=== PATIENT | male | born 1975 | race Caucasian/White ===

== ENCOUNTER 2017-02-08 10:21 | Emergency (ER) | payer MEDICARE, OTHER ==
[~2017-02-08 10:21] MED LIST: BUPR100T6 PO; CANA300T PO; CEPH-263 PO; CLON0.5T PO; COLE625T12 PO; CYCL-331 PO; DIVA500T2 PO; FENO67CA PO; GLIP10TA13 PO; HALO5AMP2 IJ; HYDR-971 PO; INSU100I13 SQ; INSU100V5 IJ; OMEG500C PO; TEST5GEL29 TD; TRAM50TA PO; TRAZ150T49 PO; [UNRECOGNIZED DRUG - OTHER]
--- NOTE | 2017-02-08 11:04 | RAD ---
Clinical Indication: Hit head on a shelf standing up, pain Technique: Study is dated February 08, 2017. CT images of the head were obtained from the skull base to the vertex without IV contrast. There are no comparison studies available. One or more of the following individualized dose reduction techniques were utilized for this examination: 1. Automated exposure control 2. Adjustment of the mA and/or kV according to patient size 3. Use of iterative reconstruction technique Findings: The ventricles are normal in size and configuration. There is no hemorrhage, extraaxial collection, mass, or midline shift. There is no large vascular distribution acute infarct. The posterior fossa and brainstem are unremarkable. Orbits are normal. The included paranasal sinuses and mastoid air cells are clear. There is no skull fracture appreciated on bone level images. Impression: No acute intracranial findings.
--- NOTE | 2017-02-08 11:14 | PHYS DOC ---
Past History Past Medical History: Bipolar, Diabetes, Other Past Surgical History: Cholecystectomy, Tonsillectomy Smoking: Non-smoker Alcohol Use: None Drug Use: None Adult General Chief Complaint Chief Complaint: head injury HPI HPI Patient is a 42-year-old male who presents after head injury at work. The patient was at work when he bent over to pick something up, as he raised up he struck the top of his head on the corner of a metal shelf. He did not get knocked out and did not get knocked to the ground, he stumbled for a minute but was able to stand up. He had a little scrape or laceration to the top of his head. Over the next 30-40 minutes, he started feeling a little "confused", felt like when he stood up from a seated position he felt a little off balance, also felt like a ringing or of whooshing sound in his left ear. He does not particularly have a headache. He has had no nausea or vomiting. His shift ended at 10 AM so he came in to be checked out. He states he's had a few concussions in the past. He denies blood thinners. Patient did express a concern about radiation from CT scan, and we discussed risk/benefit. The patient, after this discussion, does want to have the CT scan. Review of Systems Review of Systems Constitutional: Denies fever or chills [] Eyes: Denies change in visual acuity HENT: As in history of present illness GI: Denies nausea or vomiting Musculoskeletal: Denies injury elsewhere Neurologic: Denies headache, focal weakness or sensory changes [] Allergies Allergies Allergies Coded Allergies Type Severity Reaction Last Updated Verified adhesive Allergy Intermediate RASH 03/12/15 Yes latex Allergy Unknown 03/12/15 No Physical Exam Physical Exam Constitutional: Well developed, well nourished, no acute distress, non-toxic appearance. Alert, ambulatory, mentating normally. HENT: Normocephalic, 1 cm abrasion linear over the top of the head which is hemostatic, bilateral external ears normal, bilateral EACs and TMs normal. Eyes: PERRLA, EOMI, conjunctiva normal, no discharge. [] Neck: Normal range of motion, no tenderness, supple, no stridor. [] Extremities: No tenderness, no cyanosis, no clubbing, ROM intact, no edema. [] Neurologic: Alert and oriented X 3, normal motor function, normal sensory function, no focal deficits noted. [] Current Patient Data Vital Signs Vital Signs Date Time Temp Pulse Resp B/P (MAP) Pulse Ox O2 Delivery O2 Flow Rate FiO2 02/08/17 10:25 97.8 107 18 95 Room Air EKG EKG [] Radiology/Procedures Radiology/Procedures CT scan of the head interpreted by the radiologist, no acute findings. [] Course & Med Decision Making Course & Med Decision Making Pertinent Labs and Imaging studies reviewed. (See chart for details) 42-year-old male with a minor head injury and negative CT scan, he is not on blood thinners. He lives with his who will keep an eye on him. Head injury precautions given. [] Dragon Disclaimer Dragon Disclaimer This chart was dictated in whole or in part using Voice Recognition software in a busy, high-work load, and often noisy Emergency Department environment. It may contain unintended and wholly unrecognized errors or omissions. Departure Departure: Impression: Primary Impression: Head injury, acute, without loss of consciousness Disposition: 01 HOME, SELF-CARE Condition: STABLE Referrals: KELLY GARCIA (PCP) Patient Instructions: Head Injury, Adult, [id number] Additional Instructions: Have someone stay with you for 24-48 hours. If you have severe headache, vomiting, or symptoms such as difficulty walking or speaking, return to ED right away. Ibuprofen or Tylenol for headache as needed. CHITO WATERS MD February 08, 2017 11:13
[2017-02-08 11:31] VITALS: BP 129/89
== END 2017-02-08 11:28 | disposition home or self-care (01) ==
LOC: ER 10:21
DX: S00.91XA Abrasion of unspecified part of head, initial encounter (principal); E11.9 Type 2 diabetes mellitus without complications; Z88.8 Allergy status to other drugs, medicaments and biological substances; Z91.040 Latex allergy status; W22.8XXA Striking against or struck by other objects, initial encounter; Y93.89 Activity, other specified; Y99.8 Other external cause status; Y92.89 Other specified places as the place of occurrence of the external cause
CPT/HCPCS: 70450; 99284-25

== ENCOUNTER 2017-05-22 01:31 | Emergency (ER) | payer MEDICARE, OTHER ==
[~2017-05-22] VITALS: Ht 188 cm; Wt 117.9 kg
[2017-05-22] MEDS ORDERED: FLUC200T PO (02:08)
[2017-05-22] MEDS ORDERED: CIPR500T94 PO (02:08)
--- NOTE | 2017-05-22 02:08 | PHYS DOC ---
Past History Past Medical History: Arthritis, Bipolar, Diabetes, Pancreatitis, Other Past Surgical History: Cholecystectomy, Tonsillectomy Past Surgical History Eye surgery; vasectomy Smoking: Non-smoker Alcohol Use: None Drug Use: None Adult General Chief Complaint Chief Complaint: PENIS PROBLEM HPI HPI Patient is a 41 year old male who presents with penile pain. It awakened him at 0030 am. No swelling; no drainage; no skin changes; no lesions; no hematuria. He has NO testicular pain or swelling and NO inguinal pain or swelling. No fever. No vomiting. No abdominal pain (that is different from his usual chronic abdominal pain from chronic pancreatitis). Review of Systems Review of Systems Constitutional: Denies fever or chills Eyes: Denies change in visual acuity, redness, or eye pain HENT: Denies nasal congestion or sore throat Respiratory: Denies cough or shortness of breath Cardiovascular: No chest pain GI: Denies abdominal pain, nausea, vomiting, bloody stools or diarrhea : Denies dysuria or hematuria. Penile pain -see HPI Musculoskeletal: Denies back pain or joint pain Integument: Denies rash or skin lesions Neurologic: Denies headache, focal weakness or sensory changes Allergies Allergies Allergies Coded Allergies Type Severity Reaction Last Updated Verified adhesive Allergy Intermediate RASH 03/12/15 Yes latex Allergy Unknown 03/12/15 No Physical Exam Physical Exam Constitutional: Well developed, well nourished, no acute distress, non-toxic appearance. Eyes: PERRLA, EOMI, conjunctiva normal, no discharge. Cardiovascular:Heart rate regular rhythm, no murmur Lungs & Thorax: Bilateral breath sounds clear to auscultation Abdomen: Bowel sounds normal, soft, no tenderness, no masses, no pulsatile masses. : Pretzel Cooker present. No skin changes;no rash. No evidence of Malachi's. No penile swelling; no erection. No discharge at urethra or blood at urethra. No testicular pain or swelling;no inguinal pain or swelling. Skin: Warm, dry, no erythema, no rash. Back: No tenderness, no CVA tenderness. Extremities: No tenderness, no cyanosis, no clubbing, ROM intact, no edema. Neurologic: Alert and oriented X 3, normal motor function, normal sensory function, no focal deficits noted. Psychologic: Affect normal, judgement normal, mood normal. Current Patient Data Vital Signs Vital Sign - Last 24 Hours 05/22/17 05/22/17 05/22/17 01:40 02:09 02:15 Temp 98.8 98.8 97.3 Pulse 101 101 112 Resp 18 18 Pulse Ox 96 96 94 O2 Delivery Room Air Lab Results Laboratory Tests Test 05/22/17 01:40 Urine Collection Type Unknown Urine Color Yellow Urine Clarity Clear Urine pH 5.5 Urine Specific [place] 1.015 Urine Protein Neg (NEG-TRACE) Urine Glucose (UA) >=1000 mg/dL (NEG) Urine Ketones (Stick) 15 mg/dL (NEG) Urine Blood Neg (NEG) Urine Nitrite Neg (NEG) Urine Bilirubin Neg (NEG) Urine Urobilinogen Dipstick 0.2 mg/dL (0.2 mg/dL) Urine Leukocyte Esterase Neg (NEG) Urine RBC 0 /HPF (0-2) Urine WBC Rare /HPF (0-4) Urine Squamous Epithelial Cells Occ /LPF Urine Bacteria 0 /HPF (0-FEW) Course & Med Decision Making Course & Med Decision Making Will treat for urethritis with cipro. Rx for diflucan as well due to his diabetes to prevent monilial infections. UA sent and GC/Chlamydia sent. Will have him f/u w PCP. No indication for US as he has no evidence/complaint or physical findings of torsion. Dragon Disclaimer Dragon Disclaimer This chart was dictated in whole or in part using Voice Recognition software in a busy, high-work load, and often noisy Emergency Department environment. It may contain unintended and wholly unrecognized errors or omissions. Departure Departure: Impression: Primary Impression: Urethritis Disposition: HOME, SELF-CARE Condition: STABLE Referrals: KELLY GARCIA (PCP) Patient Instructions: Urethritis, Adult Additional Instructions: FOLLOW UP WITH YOUR PCP RE: THE URINE CULTURE SENT Scripts Fluconazole (DIFLUCAN) 200 Mg Tablet 1 TAB PO DAILY, #3 TAB Prov: BRIAN CORTES MD 05/22/17 Ciprofloxacin Hcl (CIPRO) 500 Mg Tablet 1 TAB PO BID, #14 TAB Prov: BRIAN CORTES MD 05/22/17 BRIAN CORTES MD May 22, 2017 02:08
[2017-05-22 02:15] VITALS: BP 135/80
[2017-05-22 02:23] LABS: BACTERIA,URINE 0 /HPF (0-FEW); BILIRUBIN,URINE NEG (NEG); CLARITY,URINE CLEAR; COLOR,URINE YELLOW; GLUCOSE,URINE >=1000 mg/dL (NEG); NITRITE,URINE NEG (NEG); RBC,URINE 0 /HPF (0-2); UROBILINOGEN,URINE 0.2 mg/dL (0.2 mg/dL); WBC,URINE RARE /HPF (0-4)
[2017-05-22 02:24] LABS: SQUAMOUS EPITHELIAL CELL,UR OCC /LPF
[2017-05-22] MEDS ORDERED: CIPROFLOXACIN HCL 500 MG TABLET PO ONE (02:30)
== END 2017-05-22 02:20 | disposition home or self-care (01) ==
LOC: ER 01:31
DX: N34.2 Other urethritis (principal); E11.9 Type 2 diabetes mellitus without complications; G89.29 Other chronic pain; K86.1 Other chronic pancreatitis; Z88.8 Allergy status to other drugs, medicaments and biological substances; Z91.040 Latex allergy status
CPT/HCPCS: 36415; 81001; 87491; 87591; 99284

== ENCOUNTER 2020-11-04 16:49 | Emergency (ER) | payer BC, MEDICARE ==
[~2020-11-04] VITALS: Ht 188 cm; Wt 118.3 kg
[~2020-11-04 16:49] MED LIST changes: +CIPR500T94 PO; +FLUC200T PO; +HYDR-3165 PO; -HYDR-971 PO
[2020-11-04] MEDS ORDERED: methylPREDNISolone SOD SUCC PF 125 MG/2 ML VIAL. IM ONE (17:30)
[2020-11-04 17:37] VITALS: BP 139/70
[2020-11-04 17:39] LABS: BILIRUBIN,URINE NEG (NEG); CLARITY,URINE CLEAR; COLOR,URINE YELLOW; GLUCOSE,URINE >=1000 mg/dL (NEG); NITRITE,URINE NEG (NEG); UROBILINOGEN,URINE 0.2 mg/dL (0.2 mg/dL)
[2020-11-04 17:44] LABS: BACTERIA,URINE 0 /HPF (0-FEW); RBC,URINE 0 /HPF (0-2); WBC,URINE 0 /HPF (0-4)
[2020-11-04 17:45] LABS: SQUAMOUS EPITHELIAL CELL,UR OCC /LPF
[2020-11-04] MEDS ORDERED: CYCL-331 PO (17:57)
--- NOTE | 2020-11-04 17:57 | PHYS DOC ---
Past History Past Medical History: Arthritis, Bipolar, Diabetes, Pancreatitis, Other Additional Past Medical Histor: NON-ETOH LIVER DISEASE Past Surgical History: Cholecystectomy, Tonsillectomy, Other Additional Past Surgical Histo: VASCECTOMY, 8 EYE SURGERIES Smoking: Non-smoker Alcohol Use: Occasionally Drug Use: None Adult General Chief Complaint Chief Complaint: GROIN PAIN HPI HPI Patient is a 45-year-old male patient with history of diabetes type 2, bipolar, pancreatitis, who presents the ED today complaining of mild to moderate throbbing intermittent right groin pain worse on range of motion especially extension of the right hip, symptoms began a week ago. 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 Denies any urinary symptoms. He reports he has multiple female partners including his . He states the also has multiple sex partners. He states he only wants a steroid injection. Review of Systems Review of Systems Constitutional: Denies fever or chills [] : Denies dysuria or hematuria [] Musculoskeletal: Reports right groin pain. Denies back pain Integument: Denies rash or skin lesions [] Neurologic: Denies headache, focal weakness or sensory changes [] All other systems were reviewed and found to be within normal limits, except as documented in this note. Current Medications Current Medications Current Medications Medications (Trade) Dose Ordered Sig/Jose Start Time Stop Time Status Last Admin Dose Admin Methylprednisolone Sodium Succinate (SOLU-Medrol 125MG VIAL) 125 mg 1X ONCE 11/04/20 17:30 11/04/20 17:31 DC 11/04/20 17:38 125 MG Allergies Allergies Allergies Coded Allergies Type Severity Reaction Last Updated Verified adhesive Allergy Intermediate RASH 03/12/15 Yes latex Allergy Intermediate 05/22/17 No Physical Exam Physical Exam Constitutional: Well developed, well nourished, no acute distress, non-toxic appearance. [] Skin: Warm, dry, no erythema, no rash. [] Back: No tenderness, no CVA tenderness. [] Extremities: No tenderness, no cyanosis, no clubbing, ROM intact, no edema. [] Neurologic: Alert and oriented X 3, normal motor function, normal sensory function, no focal deficits noted. [] Psychologic: Affect normal, judgement normal, mood normal. [] Current Patient Data Vital Signs Vital Signs Date Time Temp Pulse Resp B/P (MAP) Pulse Ox O2 Delivery O2 Flow Rate FiO2 11/04/20 17:37 105 20 139/70 (93) 96 Room Air 11/04/20 17:00 98.6 Lab Results Laboratory Tests Test 11/04/20 17:15 Urine Collection Type Unknown Urine Color Yellow Urine Clarity Clear Urine pH 6.0 Urine Specific [place] 1.015 Urine Protein Neg (NEG-TRACE) Urine Glucose (UA) >=1000 mg/dL (NEG) Urine Ketones (Stick) 15 mg/dL (NEG) Urine Blood Neg (NEG) Urine Nitrite Neg (NEG) Urine Bilirubin Neg (NEG) Urine Urobilinogen Dipstick 0.2 mg/dL (0.2 mg/dL) Urine Leukocyte Esterase Neg (NEG) Urine RBC 0 /HPF (0-2) Urine WBC 0 /HPF (0-4) Urine Squamous Epithelial Cells Occ /LPF Urine Bacteria 0 /HPF (0-FEW) EKG EKG [] Radiology/Procedures Radiology/Procedures [] Heart Score Risk Factors: Risk Factors: DM, Current or recent (<one month) smoker, HTN, HLP, family history of CAD, obesity. Risk Scores: Risk Factors: DM, Current or recent (<one month) smoker, HTN, HLP, family history of CAD, obesity. Course & Med Decision Making Course & Med Decision Making Pertinent Labs and Imaging studies reviewed. (See chart for details) This is a 45-year-old male patient presented to the ED today complaining of groin pain. 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 He is requesting a steroid injection which was administered in the ED. His UA was noted for glucose greater than 1000. He states he has history of diabetes and he does not want any further work-up related to his sugars. He was given a steroid injection and reminded his sugars will be higher which he is aware of Dragon Disclaimer Dragon Disclaimer This electronic medical record was generated, in whole or in part, using a voice recognition dictation system. Departure Departure: Impression: Primary Impression: Strain of right groin Disposition: 01 DC HOME SELF CARE/HOMELESS Condition: STABLE Referrals: KELLY GARCIA (PCP) follow up with your doctor in 1 week Patient Instructions: Groin Strain Additional Instructions: Please follow-up with your primary care doctor in 1 to 2 weeks. Continue daily stretches especially to your groin region. Scripts Cyclobenzaprine Hcl (CYCLOBENZAPRINE HCL) 10 Mg Tablet 1 TAB PO TID, #30 TAB Prov: MELODY MCKOY APRN 11/04/20 MELODY MCKOY APRN Nov 04, 2020 17:57
== END 2020-11-04 18:04 | disposition home or self-care (01) ==
LOC: ER 16:49
DX: S39.011A Strain of muscle, fascia and tendon of abdomen, initial encounter (principal); E11.9 Type 2 diabetes mellitus without complications; Z90.49 Acquired absence of other specified parts of digestive tract; X58.XXXA Exposure to other specified factors, initial encounter; Y93.89 Activity, other specified; Y92.89 Other specified places as the place of occurrence of the external cause; Y99.8 Other external cause status
CPT/HCPCS: 36415; 81001; 87491; 87591; 96372; 99283; J2930

== ENCOUNTER 2021-02-10 18:18 | Emergency (ER) | payer BC, MEDICARE ==
[~2021-02-10] VITALS: Ht 188 cm; Wt 118.3 kg
[2021-02-10 18:51] VITALS: BP 139/70
[2021-02-10] MEDS ORDERED: DEXAMETHASONE 4 MG TABLET PO ONE (19:30)
--- NOTE | 2021-02-10 19:37 | PHYS DOC ---
Past History Past Medical History: No Pertinent History, Arthritis, Bipolar, Diabetes, Pancreatitis, Other Additional Past Medical Histor: NON-ETOH LIVER DISEASE Past Surgical History: Cholecystectomy, Tonsillectomy, Other Additional Past Surgical Histo: VASCECTOMY, 8 EYE SURGERIES Smoking: Non-smoker Alcohol Use: None Drug Use: None Adult General Chief Complaint Chief Complaint: SKIN RASH/ABSCESS HPI HPI Patient is a 46-year-old male who presents with a rash for 2 days. States that he was outside cutting his grass a couple days ago and then noticed a few hours later rash pop up on his right hand. States it does not cause any pain but it does itch quite a bit. States he put some hydrocortisone cream on it which did seem to help some. States he noticed a little bit of the rash on his eyelid just above his right eye which also itches but does not have any associated pain. Denies any eye pain, discharge, vision changes. States he called his primary care physician bridal consultant was directed to the emergency department. Denies any recent travel, illnesses, fevers, known ill contacts. Denies any history of shingles or contact with anybody with shingles. Review of Systems Review of Systems Review of systems otherwise unremarkable except noted in HPI Current Medications Current Medications Current Medications Medications (Trade) Dose Ordered Sig/Jose Start Time Stop Time Status Last Admin Dose Admin Dexamethasone (Decadron) 10 mg 1X ONCE 02/10/21 19:30 02/10/21 19:31 Allergies Allergies Allergies Coded Allergies Type Severity Reaction Last Updated Verified adhesive Allergy Intermediate RASH 03/12/15 Yes latex Allergy Intermediate 05/22/17 No Physical Exam Physical Exam Constitutional: Well developed, well nourished, no acute distress, non-toxic appearance. [] HENT: Normocephalic, atraumatic, Eyes: PERRLA, EOMI, conjunctiva normal, no discharge, mild erythematous nonindurated rash on the upper right eyelid just under the eyebrow with no vesicles noted. [] Cardiovascular:Heart rate regular rhythm, no murmur [] Lungs & Thorax: Bilateral breath sounds clear to auscultation [] Extremities: Patient has no rash across the posterior portion of the right hand and third and fourth digits, with some raised erythema and 3 small vesicles/pustules. Neurologic: Alert and oriented X 3, normal motor function, normal sensory function, no focal deficits noted. [] Psychologic: Affect normal, judgement normal, mood normal. [] Current Patient Data Vital Signs Vital Signs Date Time Temp Pulse Resp B/P (MAP) Pulse Ox O2 Delivery O2 Flow Rate FiO2 02/10/21 18:51 97.5 85 16 139/70 (93) 100 Room Air EKG EKG [] Radiology/Procedures Radiology/Procedures [] Heart Score C/O Chest Pain: No Risk Factors: Risk Factors: DM, Current or recent (<one month) smoker, HTN, HLP, family history of CAD, obesity. Risk Scores: Risk Factors: DM, Current or recent (<one month) smoker, HTN, HLP, family history of CAD, obesity. Course & Med Decision Making Course & Med Decision Making Patient is a 46-year-old male who presents with 2 days of rash that he noticed after being outside cutting his grass Vital signs not concerning. Physical exam noted above. Discussed with patient differential diagnosis of some type of poison isabelle/oak versus shingles. Patient states that he has had no pain at all with this rash but does have significant itching which started after the rash showed up. States that he tried some hydrocortisone cream which provided some relief. Discussed treatment of poison isabelle/oak with steroids. Also discussed the possibility of shingles even though he is having no pain no real vesicle formation and no history of this or history of exposure. Advised to call primary care physician first thing Friday to update on ED visit and set up a follow-up as soon as he can. Gave super strict return precautions to the emergency department. Patient grateful, verbalized understanding and agreed with plan of discharge. [] Dragon Disclaimer Dragon Disclaimer This electronic medical record was generated, in whole or in part, using a voice recognition dictation system. Departure Departure: Impression: Primary Impression: Rash Additional Impression: Poison isabelle Disposition: HOME / SELF CARE / HOMELESS Condition: GOOD Referrals: KELLY GARCIA (PCP) Patient Instructions: Poison [place], Rash, Shingles Additional Instructions: Please read all of the attached information very carefully. As discussed, please call your primary care physician first thing Friday to discuss your ED visit and set up a follow-up as soon as possible. You are given a work note to allow contact with your primary care physician. As discussed it is very important to come back to the emergency department immediately with any of the new or concerning symptoms that we discussed in the room. Problem Qualifiers MARTINEZ VICTORIA MD February 10, 2021 19:37
== END 2021-02-10 19:50 | disposition home or self-care (01) ==
LOC: ER 18:18
DX: L23.7 Allergic contact dermatitis due to plants, except food (principal); E11.9 Type 2 diabetes mellitus without complications; Z91.040 Latex allergy status; Z88.6 Allergy status to analgesic agent; Z90.49 Acquired absence of other specified parts of digestive tract
CPT/HCPCS: 99283; J8540

== ENCOUNTER 2021-03-12 15:32 | Emergency (ER) | payer BC, MEDICARE ==
[~2021-03-12] VITALS: Ht 188 cm; Wt 118.7 kg
[2021-03-12 15:40] VITALS: BP 122/74
[2021-03-12] MEDS ORDERED: CEPH500C PO (16:21)
[2021-03-12] MEDS ORDERED: NEOM28OI21 TP (16:21)
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
== END 2021-03-12 16:25 | disposition home or self-care (01) ==
LOC: ER 15:32
DX: T23.172A Burn of first degree of left wrist, initial encounter (principal); T23.171A Burn of first degree of right wrist, initial encounter; M19.90 Unspecified osteoarthritis, unspecified site; F31.9 Bipolar disorder, unspecified; E11.9 Type 2 diabetes mellitus without complications; Z91.040 Latex allergy status; Z88.8 Allergy status to other drugs, medicaments and biological substances; X10.2XXA Contact with fats and cooking oils, initial encounter; Y93.89 Activity, other specified; Y92.89 Other specified places as the place of occurrence of the external cause; Y99.8 Other external cause status
CPT/HCPCS: 99283

== ENCOUNTER → 2021-03-27 | Day surgery (SDC) | payer BC, MEDICARE ==
[~2021-03-27] MED LIST changes: +BUPR150T15 PO; +CEPH500C PO; +EMPA10TA PO; +EVOL420W2 SQ; +INSU100V37 SQ; +INUL2TAB4 PO; +IPRATRPIUM/ALBUTEROL 0.5/2.5MG 3 ML NEBU. NEB PRN; +IV RINGERS SOLUTION,LACTATED 1,000 ML IV SCH; +LIDOCAINE 2% PF 5 ML VIAL. ONE; +LORA-254 PO; +MIDAZOLAM HCL PF 2 MG/2 ML VIAL. IV ONE; +MULT-766 PO; +NEOM28OI21 TP; +ONDANSETRON PF 4 MG/2 ML VIAL. IV PRN; +OXCA300T19 PO; +OXCA600T9 PO; +PROPOFOL 10,000 MCG/ML (20ML) VIAL IV ONE; +SILD50TA PO; +TEST200V3 IM; +TIMO5DRO26 EACHEYE; +TRAZ-125 PO
[2021-03-27 09:30] VITALS: BP 106/73
== END | disposition home or self-care (01) ==
LOC: SURG 07:12
PROVIDERS: ATTEND Internal Medicine Gastroenterology
DX: Z12.11 Encounter for screening for malignant neoplasm of colon (principal); K57.30 Diverticulosis of large intestine without perforation or abscess without bleeding; F31.9 Bipolar disorder, unspecified; G47.33 Obstructive sleep apnea (adult) (pediatric); E78.00 Pure hypercholesterolemia, unspecified; I42.9 Cardiomyopathy, unspecified; F41.9 Anxiety disorder, unspecified; E11.65 Type 2 diabetes mellitus with hyperglycemia; Z86.010 Personal history of colon polyps; Z80.0 Family history of malignant neoplasm of digestive organs; Z91.040 Latex allergy status; Z79.4 Long term (current) use of insulin; Z88.8 Allergy status to other drugs, medicaments and biological substances; Z90.49 Acquired absence of other specified parts of digestive tract; Z98.890 Other specified postprocedural states; Z90.89 Acquired absence of other organs
CPT/HCPCS: 45380; 45385; 82947; J2001; J2704; J7120; 88305

== ENCOUNTER 2021-06-28 14:25 | Emergency (ER) | payer OTHER, MEDICARE ==
[~2021-06-28] VITALS: Ht 188 cm; Wt 118.8 kg
[~2021-06-28 14:25] MED LIST changes: -FENO67CA PO; +FENO67CA2 PO; -IPRATRPIUM/ALBUTEROL 0.5/2.5MG 3 ML NEBU. NEB PRN; -IV RINGERS SOLUTION,LACTATED 1,000 ML IV SCH; -LIDOCAINE 2% PF 5 ML VIAL. ONE; -MIDAZOLAM HCL PF 2 MG/2 ML VIAL. IV ONE; -NEOM28OI21 TP; +NEOM28OI48 TP; -ONDANSETRON PF 4 MG/2 ML VIAL. IV PRN; -PROPOFOL 10,000 MCG/ML (20ML) VIAL IV ONE
[2021-06-28] MEDS: ONDANSETRON PF 4 MG/2 ML VIAL. IVP ONE (15:19)
[2021-06-28] MEDS: IV NORMAL SALINE 1,000ML 1,000 ML IV ONE (15:20)
[2021-06-28 15:27] LABS: BASO % 0 % (0-3); EOS # 0.1 x10^3/uL (0.0-0.7); EOS % 1 % (0-3); HEMATOCRIT 54.6 % (39.0-53.0); HEMOGLOBIN 18.2 g/dL (13.0-17.5); LYMPH # 0.8 x10^3/uL (1.0-4.8); LYMPH % 6 % (24-48); MEAN CORPUSCULAR HEMOGLOBIN 30 pg (25-35); MEAN CORPUSCULAR HGB CONC 33 g/dL (31-37); MEAN CORPUSCULAR VOLUME 90 fL (79-100); MONO # 0.6 x10^3/uL (0.0-1.1); MONO % 4 % (0-9); NEUT # 11.3 x10^3uL (1.8-7.7); NEUT % 89 % (31-73); PLATELET COUNT 313 x10^3/uL (140-400); RED BLOOD COUNT 6.09 x10^6/uL (4.30-5.70); RED CELL DISTRIBUTION WIDTH 13.9 % (11.5-14.5); WHITE BLOOD COUNT 12.8 x10^3/uL (4.0-11.0)
[2021-06-28 15:37] LABS: CALCIUM 8.9 mg/dL (8.5-10.1); CREATININE 0.8 mg/dL (0.7-1.3); GFR 104.1; POTASSIUM 4.1 mmol/L (3.5-5.1)
--- NOTE | 2021-06-28 15:40 | EKG ---
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
[2021-06-28 15:43] LABS: ALBUMIN 4.3 g/dL (3.4-5.0); ALBUMIN/GLOBULIN RATIO 1.3 (1.0-1.7); TOTAL BILIRUBIN 0.4 mg/dL (0.2-1.0); TOTAL PROTEIN 7.6 g/dL (6.4-8.2)
--- NOTE | 2021-06-28 15:47 | PHYS DOC ---
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 Patient states his temperature was 99.2 F when he measured at home. Patient states he "never gets a fever," so this was very concerning to him. Patient states he typically walks 2 to 4 miles per day, but has been unable to do that today. He was first diagnosed with pancreatitis in 2013, which was nonalcohol- related. Patient has no sick contacts. He denies headache, vision changes, chest pain, cough. He has no other complaints at this time. (CONNOR PALOMINO) Review of Systems: Review of Systems: Constitutional: See HPI HENT: Denies nasal congestion or sore throat Respiratory: Denies cough or shortness of breath Cardiovascular: Denies chest pain or edema GI: See HPI : Denies dysuria or hematuria Musculoskeletal: Denies back pain or joint pain Integument: Denies rash or other skin lesions Neurologic: Denies headache, focal weakness or sensory changes Endocrine: Denies polyuria or polydipsia (CONNOR PALOMINO) Current Medications: Current Meds: Current Medications Medications (Trade) Dose Ordered Sig/Jose Start Time Stop Time Status Last Admin Dose Admin Iohexol (Omnipaque 300 Mg/ml) 75 ml 1X ONCE 06/28/21 15:30 06/28/21 15:31 DC Lorazepam (Ativan Inj) 2 mg 1X ONCE 06/28/21 15:15 06/28/21 15:16 DC 06/28/21 15:20 2 MG Ondansetron HCl (Zofran) 8 mg 1X ONCE 06/28/21 15:15 06/28/21 15:16 DC 06/28/21 15:19 8 MG Sodium Chloride 1,000 ml @ 1,000 mls/hr 1X ONCE 06/28/21 15:15 06/28/21 16:14 06/28/21 15:20 1,000 MLS/HR (CONNOR PALOMINO) Allergies: Allergies: Allergies Coded Allergies Type Severity Reaction Last Updated Verified adhesive Allergy Intermediate RASH 03/27/21 Yes latex Allergy Intermediate 03/27/21 No (CONNOR PALOMINO) Physical Exam: PE: Constitutional: Well developed, well nourished, non-toxic appearance. Cardiovascular: Heart rate elevated with regular rhythm, no murmur. Lungs & Thorax: Bilateral breath sounds clear to auscultation. Abdomen: Bowel sounds normal, soft, diffuse upper abdominal tenderness to palpation, no masses, no pulsatile masses. Skin: Warm, dry, no erythema, no rash. Neurologic: Alert and oriented x3, normal motor function, normal sensory function, no focal deficits noted. Psychologic: Affect anxious, good judgment, mood anxious. (CONNOR PALOMINO) Current Patient Data: Labs: Laboratory Tests Test 06/28/21 15:05 White Blood Count 12.8 x10^3/uL (4.0-11.0) H Red Blood Count 6.09 x10^6/uL (4.30-5.70) H Hemoglobin 18.2 g/dL (13.0-17.5) H Hematocrit 54.6 % (39.0-53.0) H Mean Corpuscular Volume 90 fL (79-100) Mean Corpuscular Hemoglobin 30 pg (25-35) Mean Corpuscular Hemoglobin Concent 33 g/dL (31-37) Red Cell Distribution Width 13.9 % (11.5-14.5) Platelet Count 313 x10^3/uL (140-400) Neutrophils (%) (Auto) 89 % (31-73) H Lymphocytes (%) (Auto) 6 % (24-48) L Monocytes (%) (Auto) 4 % (0-9) Eosinophils (%) (Auto) 1 % (0-3) Basophils (%) (Auto) 0 % (0-3) Neutrophils # (Auto) 11.3 x10^3uL (1.8-7.7) H Lymphocytes # (Auto) 0.8 x10^3/uL (1.0-4.8) L Monocytes # (Auto) 0.6 x10^3/uL (0.0-1.1) Eosinophils # (Auto) 0.1 x10^3/uL (0.0-0.7) Basophils # (Auto) 0.0 x10^3/uL (0.0-0.2) Vital Signs: Vital Signs Date Time Temp Pulse Resp B/P (MAP) Pulse Ox O2 Delivery O2 Flow Rate FiO2 06/28/21 15:00 98.7 120 16 142/87 (105) 97 Room Air (CONNOR PALOMINO) EKG: EKG: EKG Interpreted by Dr. Montoya: Sinus tachycardia 120 bpm and regular rhythm with no ectopic beats. No concerning ST-T wave changes. Regular QR interval. (CONNOR PALOMINO) Radiology/Procedures: Radiology/Procedures: PROCEDURE: CT ABD PELV W/ IV CONTRST ONLY INDICATION: Reason: periumbilical pain - 75mls omni 300 / Spl. Instructions: / History: COMPARISON: None. TECHNIQUE: Axial CT images were obtained through the abdomen and pelvis with intravenous contrast. One or more of the following individualized dose reduction techniques were utilized for this examination: 1. Automated exposure control; 2. Adjustment of the mA and/or kV according to patient size; 3. Use of iterative reconstruction technique. FINDINGS: Vascular: Scattered calcific atherosclerosis. Hepatobiliary: Postcholecystectomy changes. Liver is low density which can be seen with fatty infiltration. Pancreas: No peripancreatic edema. Spleen: Spleen unremarkable. Renal/Bladder: No hydronephrosis. Excreted contrast is seen within the bilateral kidneys and ureter with some of the urinary bladder is well. Degenerative changes the hips. Gastrointestinal: There is a a few prominent small bowel loops in the left-sided the abdomen measuring up to about 37 mm with more distal decompression. The appendix measures approximately 6 mm. Degenerative changes the spine with disc protrusions and osteophyte formation at the vertebral body endplates as well as facet hypertrophy with multilevel central canal and neural foraminal stenosis. IMPRESSION: * There is a couple of mildly dilated loops of proximal small bowel with more distal decompression. This is a mild finding but would correlate with symptoms to ensure there is not a pathologic cause such as mild partial small bowel obstruction. * Appendix is at the upper limits of normal in size without adjacent inflammatory changes. Electronically signed by: Carlos Alonzo MD (06/28/2021 4:34 PM) [id number] (CONNOR PALOMINO) Heart Score: C/O Chest Pain: No (CONNOR PALOMINO) Course & Med Decision Making: Course & Med Decision Making Pertinent Labs and Imaging studies reviewed. (See chart for details) Patient will be given abdominal work-up today as well as an EKG due to his tachycardia. He will be given Zofran for his nausea and Ativan to treat his anxiety he is currently experiencing. CT scan reveals an enlarged appendix and dilated small bowel. A call to the hospitalist at [facility] was placed at 1705 so that he might be transferred and able to have a surgical consult and further evaluation. Patient will be transferred to [facility] to Dr. Savage. Dr. Merritt general surgery was consulted and will see the patient tomorrow. (CONNOR PALOMINO) Course & Med Decision Making See Earlier notes prior shift change. Transfer [facility]- Dr. Savage - Dx possible bowel obstruction. (GAVIOTA RICHARDSON MD) Dragon Disclaimer: Dragon Disclaimer: This electronic medical record was generated, in whole or in part, using a voice recognition dictation system. (CONNOR PALOMINO) Departure Departure: Impression: Primary Impression: Abdominal pain, periumbilical Additional Impression: Leukocytosis Qualified Codes: D72.829 - Elevated white blood cell count, unspecified Disposition: 02 SHORT TERM HOSPITAL Referrals: KELLY GARCIA (PCP) Dragon Disclaimer This chart was dictated in whole or in part using Voice Recognition software in a busy, high-work load, and often noisy Emergency Department environment. It may contain unintended and wholly unrecognized errors or omissions. (GAVIOTA RICHARDSON MD) Dragon Disclaimer This chart was dictated in whole or in part using Voice Recognition software in a busy, high-work load, and often noisy Emergency Department environment. It may contain unintended and wholly unrecognized errors or omissions. (GAVIOTA RICHARDSON MD) Attending Signature Attending Signature I have participated in the care of this patient and I have reviewed and agree with all pertinent clinical information above including history, exam, and recommendations. (GAVIOTA RICHARDSON MD) CONNOR PALOMINO Jun 28, 2021 15:47 GAVIOTA RICHARDSON MD Jun 28, 2021 19:28
[2021-06-28] MEDS: IOHEXOL 300 MG/ML 75 ML VIAL. IV ONE (16:04)
--- NOTE | 2021-06-28 16:36 | RAD ---
INDICATION: Reason: periumbilical pain - 75mls omni 300 / Spl. Instructions: / History: COMPARISON: None. TECHNIQUE: Axial CT images were obtained through the abdomen and pelvis with intravenous contrast. One or more of the following individualized dose reduction techniques were utilized for this examinat ion: 1. Automated exposure control; 2. Adjustment of the mA and/or kV according to patient size; 3 . Use of iterative reconstruction technique. FINDINGS: Vascular: Scattered calcific atherosclerosis. Hepatobiliary: Postcholecystectomy changes. Liver is low density which can be seen with fatty infiltr ation. Pancreas: No peripancreatic edema. Spleen: Spleen unremarkable. Renal/Bladder: No hydronephrosis. Excreted contrast is seen within the bilateral kidneys and ureter w ith some of the urinary bladder is well. Degenerative changes the hips. Gastrointestinal: There is a a few prominent small bowel loops in the left-sided the abdomen measurin g up to about 37 mm with more distal decompression. The appendix measures approximately 6 mm. Degenerative changes the spine with disc protrusions and osteophyte formation at the vertebral body e ndplates as well as facet hypertrophy with multilevel central canal and neural foraminal stenosis. IMPRESSION: * There is a couple of mildly dilated loops of proximal small bowel with more distal decompression. This is a mild finding but would correlate with symptoms to ensure there is not a pathologic cause s uch as mild partial small bowel obstruction. * Appendix is at the upper limits of normal in size without adjacent inflammatory changes. Electronically signed by: Carlos Alonzo MD (06/28/2021 4:34 PM) [id number]
[2021-06-28] MEDS ORDERED: IV NORMAL SALINE 50ML 50 ML ONE (17:47)
[2021-06-28] MEDS ORDERED: PIPERACILLIN/TAZOBACTAM 3.375 GM VIAL IV ONE (17:47)
[2021-06-28] MEDS: PIPERACILLIN/TAZOBACTAM 3.375 GM in IV NORMAL SALINE 50ML 50 ML IV ONE (17:57)
[2021-06-28 19:30] VITALS: BP 133/79
== END 2021-06-28 19:06 | disposition short-term general hospital (02) ==
LOC: ER 14:25
DX: D72.829 Elevated white blood cell count, unspecified (principal); Z91.040 Latex allergy status; Z20.822 Contact with and (suspected) exposure to COVID-19
CPT/HCPCS: 36415; 74177; 80053; 83690; 85025; 87426; 93005; 96361; 96365; 96375; 99285; J2060; J2405; J2543; J7030; Q9967; U0003

== ENCOUNTER 2021-08-29 08:01 | Emergency (ER) | payer OTHER, MEDICARE ==
[~2021-08-29] VITALS: Ht 188 cm; Wt 118.8 kg
[~2021-08-29 08:01] MED LIST changes: -COLE625T12 PO; +COLE625T29 PO; -CYCL-331 PO; +CYCL10TA19 PO; +FENO67CA13 PO; -FENO67CA2 PO
--- NOTE | 2021-08-29 09:10 | PHYS DOC ---
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 On 08/28/2021 at approximately 1630, patient felt "fogginess and dizziness" which led to him tripping over 2 steps. Patient reports he started a prescription for prednisone 2 days ago for his current pneumonia infection. Patient is reports he frequently feels foggy, due to his bipolar medication. However this instance of fogginess leading to his fall felt more severe, and was accompanied by dizziness. Patient states that he, rolled his ankle and heard a "pop" sound. Pain is a 4 out of 10 in severity, and radiates up to his mid calf. Patient is ambulating with assistance of crutches, able to bear weight approximately 20%. Patient reports shortness of air, denies fevers, chills, urinary or fecal incontinence. Review of Systems: Review of Systems: Constitutional: Denies fever or chills Eyes: Denies redness or eye pain HENT: Denies nasal congestion or sore throat Respiratory: Reports shortness of breath Cardiovascular: Denies chest pain or palpitations GI: Denies abdominal pain, nausea, or vomiting : Denies dysuria or hematuria Musculoskeletal: Reports left ankle pain; denies deformity Integument: Reports swelling and bruising of the left ankle Neurologic: Denies headache, focal weakness or sensory changes; reports generalized malaise and "fogginess" Complete systems were reviewed and found to be within normal limits, except as documented in this note. Current Medications: Current Meds: Prednisone, Wellbutrin, Viagra Allergies: Allergies: Allergies Coded Allergies Type Severity Reaction Last Updated Verified adhesive Allergy Intermediate RASH 08/29/21 Yes latex Allergy Intermediate 08/29/21 No Physical Exam: PE: Constitutional: Well developed, well nourished, no acute distress, non-toxic appearance HENT: Normocephalic, atraumatic Eyes: PERRL, EOMI, conjunctiva normal, no discharge Neck: Normal range of motion, no tenderness, supple Lungs & Thorax: No respiratory distress, equal chest rise and fall Abdomen: Soft, no tenderness; pelvis stable and nontender Skin: Warm, dry, no erythema, no rash Back: No tenderness, no CVA tenderness Extremities: Tenderness to palpation of left lateral malleolus. Ecchymosis and edema inferior to the left lateral malleolus. No tenderness to palpation at the knee. Dorsalis pedis pulse intact, +2. Neurologic: Alert and oriented X 3, normal motor function, normal sensory function, no focal deficits noted Psychologic: Affect normal, judgment normal Current Patient Data: Vital Signs: Vital Signs Date Time Temp Pulse Resp B/P (MAP) Pulse Ox O2 Delivery O2 Flow Rate FiO2 08/29/21 08:18 98.5 123 18 124/87 (99) 97 Room Air EKG: EKG: EKG @ 0903. Sinus tachycardia at rate 109 bpm. RR 552ms. DE 96ms. QT/QTc 320/432ms. Radiology/Procedures: Radiology/Procedures: PROCEDURE: CHEST AP ONLY EXAM: XR CHEST 1V 08/29/2021 8:43 AM CLINICAL INDICATION: Pneumonia, dizziness COMPARISON: Chest radiograph 02/08/2016 TECHNIQUE: AP view of the chest FINDINGS: The heart and mediastinum are normal. Lungs are well-expanded. A 7 mm nodule in the perihilar left lung is unchanged from 2016 and likely a calcified granuloma. The lungs are otherwise clear. No pleural effusion or pneumothorax. No acute osseous abnormality. IMPRESSION: No acute cardiopulmonary abnormality. Electronically signed by: Izabela Cadet MD (08/29/2021 9:38 AM) [id number] PROCEDURE: XR LT TIBIA + FIBULA, XR EXAM OF ANKLE_LEFT 3V DATE: 08/29/2021 8:43 AM INDICATION: Ankle pain and swelling, proximal pain s/p fall COMPARISON: None. FINDINGS: Bones: There is no evidence of acute fracture or dislocation. Joints: The ankle mortise is congruent. No widening of the distal tibiofibular syndesmosis. Miscellaneous: Atherosclerotic vascular calcification. IMPRESSION: No evidence of acute fracture. Electronically signed by: Sammy Vargas MD (08/29/2021 9:28 AM) [id number] Heart Score: C/O Chest Pain: N/A Course & Med Decision Making: Course & Med Decision Making 46-year-old male presents to the ED with chief complaint of left ankle injury. Patient also reports some "fogginess "and dizziness. Patient neurologically intact. X-ray obtained of left ankle and tib-fib without acute fracture or dislocation. Labs obtained and posted to chart. EKG stable. Patient offered pain medication which he declined. Ice pack applied. Crutches provided. Enrique wrap also provided. Given patient's recent pneumonia for which she is currently being treated a chest x-ray was also obtained. Chest x-ray without acute process however notation of a chronically appearing pulmonary nodule that appears similar to how it did in 2016 was noted. Radiology reports more likely secondary to a calcified granuloma. A copy of chest x-ray provided to patient to give to his PCP. Patient stable for discharge with outpatient follow-up with PCP/ankle specialist. Ankle specialist referral provided.. Discussed findings and plan with patient, who acknowledges understanding and agreement. Terrell Disclaimer: Terrell Disclaimer: This electronic medical record was generated, in whole or in part, using a voice recognition dictation system. Splinting Splinting : Location: Left ankle Pre-Made Type: ENRIQUE bandage Pre-Proc Neuro Vasc Exam: normal Post-Proc Neuro Vasc Exam: normal, unchanged from pre-exam Departure Departure: Impression: Primary Impression: Ankle sprain Qualified Codes: S93.402A - Sprain of unspecified ligament of left ankle, initial encounter Additional Impressions: Dizziness Pulmonary nodule Disposition: HOME / SELF CARE / HOMELESS Condition: STABLE Referrals: KELLY GARCIA (PCP) FRANNY CLEMENTS DPKaren Patient Instructions: Ankle Sprain, [id number], Crutch Use, Kncc-ox-Uwnw, Dizziness, [id number], Pulmonary Nodule, [id number], RICE - Routine Care for Injuries, [id number] Additional Instructions: Give copy of chest x-ray to your family physician for their records. Use flcu-rfc-wtpalmo naproxen and/or Tylenol as needed for pain or discomfort. Ice area of pain and swelling at least 20 minutes on then leave off for next 20 minutes. Repeat several times for the next few days. ZION MENDEZ DO Aug 29, 2021 09:10
--- NOTE | 2021-08-29 09:20 | EKG ---
[address] [address] Test Date: 2021-08-29 Test Time: 09:03:55 Pat Name: GAVIOTA WALTER Department: Room: Gender: M [employer]ist: JOE : 1975 Requested By: ZION MENDEZ Order Number: [id number] Reading MD: Cornelio Valdes Measurements Intervals [place] Rate: 109 P: -54 [place]: 96 QRS: 11 QRSD: 80 T: 0 QT: 320 QTc: 432 Interpretive Statements SINUS TACHYCARDIA Electronically Signed On 08-30-2021 12:37:49 [employer]ISHER IMPLANT by Cornelio Valdes
--- NOTE | 2021-08-29 09:31 | RAD ---
XR LT TIBIA + FIBULA, XR EXAM OF ANKLE_LEFT 3V DATE: 08/29/2021 8:43 AM INDICATION: Ankle pain and swelling, proximal pain s/p fall COMPARISON: None. FINDINGS: Bones: There is no evidence of acute fracture or dislocation. Joints: The ankle mortise is congruent. No widening of the distal tibiofibular syndesmosis. Miscellaneous: Atherosclerotic vascular calcification. IMPRESSION: No evidence of acute fracture. Electronically signed by: Sammy Vargas MD (08/29/2021 9:28 AM) [id number]
[2021-08-29 09:38] LABS: BASO % 0 % (0-3); EOS % 0 % (0-3); HEMOGLOBIN 16.2 g/dL (13.0-17.5); LYMPH # 1.7 x10^3/uL (1.0-4.8); LYMPH % 16 % (24-48); MEAN CORPUSCULAR HEMOGLOBIN 30 pg (25-35); MEAN CORPUSCULAR HGB CONC 33 g/dL (31-37); MEAN CORPUSCULAR VOLUME 90 fL (79-100); MONO # 0.7 x10^3/uL (0.0-1.1); MONO % 7 % (0-9); NEUT # 8.3 x10^3uL (1.8-7.7); NEUT % 77 % (31-73); PLATELET COUNT 318 x10^3/uL (140-400); RED BLOOD COUNT 5.46 x10^6/uL (4.30-5.70); WHITE BLOOD COUNT 10.8 x10^3/uL (4.0-11.0)
--- NOTE | 2021-08-29 09:41 | RAD ---
EXAM: XR CHEST 1V 08/29/2021 8:43 AM CLINICAL INDICATION: Pneumonia, dizziness COMPARISON: Chest radiograph 02/08/2016 TECHNIQUE: AP view of the chest FINDINGS: The heart and mediastinum are normal. Lungs are well-expanded. A 7 mm nodule in the perih ilar left lung is unchanged from 2016 and likely a calcified granuloma. The lungs are otherwise clear . No pleural effusion or pneumothorax. No acute osseous abnormality. IMPRESSION: No acute cardiopulmonary abnormality. Electronically signed by: Izabela Cadet MD (08/29/2021 9:38 AM) [id number]
[2021-08-29 09:46] LABS: ANION GAP 14 (6-14); BLOOD UREA NITROGEN 18 mg/dL (8-26); BUN/CREATININE RATIO 20 (6-20); CARBON DIOXIDE 24 mmol/L (21-32); CHLORIDE 104 mmol/L (98-107); CREATININE 0.9 mg/dL (0.7-1.3); GFR 90.8; GLUCOSE 178 mg/dL (70-99); POTASSIUM 4.3 mmol/L (3.5-5.1); SODIUM 142 mmol/L (136-145)
[2021-08-29 10:03] LABS: BACTERIA,URINE 0 /HPF (0-FEW); BILIRUBIN,URINE NEG (NEG); CLARITY,URINE CLEAR; COLOR,URINE YELLOW; GLUCOSE,URINE >=1000 mg/dL (NEG); NITRITE,URINE NEG (NEG); RBC,URINE OCC /HPF (0-2); UROBILINOGEN,URINE 0.2 mg/dL (0.2 mg/dL); WBC,URINE OCC /HPF (0-4)
[2021-08-29 10:09] LABS: ALBUMIN 4.1 g/dL (3.4-5.0); ALBUMIN/GLOBULIN RATIO 1.3 (1.0-1.7); ALK PHOS 52 U/L (46-116); ALT (SGPT) 31 U/L (16-63); AST (SGOT) 12 U/L (15-37); MAGNESIUM 2.1 mg/dL (1.8-2.4); TOTAL BILIRUBIN 0.3 mg/dL (0.2-1.0); TOTAL PROTEIN 7.3 g/dL (6.4-8.2)
[2021-08-29 10:37] VITALS: BP 137/70
== END 2021-08-29 10:52 | disposition home or self-care (01) ==
LOC: ER 08:01
DX: S93.402A Sprain of unspecified ligament of left ankle, initial encounter (principal); R91.1 Solitary pulmonary nodule; F41.9 Anxiety disorder, unspecified; M19.90 Unspecified osteoarthritis, unspecified site; F31.9 Bipolar disorder, unspecified; E11.9 Type 2 diabetes mellitus without complications; E78.00 Pure hypercholesterolemia, unspecified; F17.210 Nicotine dependence, cigarettes, uncomplicated; Z88.8 Allergy status to other drugs, medicaments and biological substances; Z91.040 Latex allergy status; W22.8XXA Striking against or struck by other objects, initial encounter; Y93.89 Activity, other specified; Y92.89 Other specified places as the place of occurrence of the external cause; Y99.8 Other external cause status
CPT/HCPCS: 36415; 71045; 73590; 73610; 80053; 81001; 82553; 83605; 83735; 84484; 85025; 93005; 99285